=== PATIENT | male | born 1955 | race Caucasian/White ===

== ENCOUNTER 2019-05-01 13:26 | Emergency (ER) | payer BC ==
[~2019-05-01] VITALS: Ht 175.3 cm; Wt 88.0 kg
[~2019-05-01 13:26] MED LIST: NO HOME MEDS
[2019-05-01 14:11] LABS: BASOPHILS # (AUTO) 0.1 X10'3 (0-0.2); BASOPHILS % (AUTO) 0.6 % (0-1); EOSINOPHILS # (AUTO) 0.1 X10'3 (0-0.9); EOSINOPHILS % (AUTO) 0.6 % (0-6); HEMATOCRIT 46.7 % (42.0-52.0); HEMOGLOBIN 15.9 g/dl (14.0-17.9); LYMPHOCYTES # (AUTO) 1.5 X10'3 (1.1-4.8); LYMPHOCYTES % (AUTO) 15.2 % (21-51); MEAN CORPUSCULAR HEMOGLOBIN 30.5 PG (27.0-31.0); MEAN CORPUSCULAR HGB CONC 34.1 g/dL (33.0-36.5); MEAN CORPUSCULAR VOLUME 89.7 FL (78-98); MEAN PLATELET VOLUME 8.6 FL (7.4-10.4); MONOCYTES # (AUTO) 0.5 X10'3 (0-0.9); MONOCYTES % (AUTO) 5.5 % (2-12); NEUTROPHILS # (AUTO) 7.7 X10'3 (1.8-7.7); NEUTROPHILS % (AUTO) 78.1 % (42-75); PLATELET COUNT 224 X10'3 (140-440); RED BLOOD COUNT 5.21 X10'6 (4.70-6.10); RED CELL DISTRIBUTION WIDTH 14.2 % (11.5-14.5); WHITE BLOOD COUNT 9.8 X10'3 (4.5-11.0)
[2019-05-01 14:23] LABS: PARTIAL THROMBOPLASTIN TIME 24 SECONDS (22-32)
[2019-05-01 14:38] LABS: ALANINE AMINOTRANSFERASE 42 U/L (12-78); ALBUMIN 4.1 G/DL (3.4-5.0); ALBUMIN/GLOBULIN RATIO 1.1 (1.1-1.5); ALKALINE PHOSPHATASE 60 IU/L (46-116); ANION GAP 13 (8-16); ASPARTATE AMINO TRANSFERASE 34 U/L (10-37); BILIRUBIN,TOTAL 0.5 MG/DL (0.1-1.0); BLOOD UREA NITROGEN 18 MG/DL (7-18); BUN/CREATININE RATIO 15.4 (5.4-32.0); CALCIUM 9.3 MG/DL (8.5-10.1); CHLORIDE 105 MMOL/L (99-107); CREATININE 1.17 MG/DL (0.60-1.10); GLUCOSE 131 MG/DL (70-104); POTASSIUM 3.8 MMOL/L (3.5-5.1); SODIUM 143 MMOL/L (135-145); TOTAL CARBON DIOXIDE 25.4 MMOL/L (24-32); TOTAL PROTEIN 7.9 G/DL (6.4-8.2); eGFR 63 ML/MIN
[2019-05-01 15:11] VITALS: BP 181/91
== END 2019-05-01 16:09 | disposition home or self-care (01) ==
LOC: ER 13:27
DX: E87.8 Other disorders of electrolyte and fluid balance, not elsewhere classified (principal); R42 Dizziness and giddiness; Z98.890 Other specified postprocedural states; Z88.2 Allergy status to sulfonamides
CPT/HCPCS: 36415; 71045; 80053; 84484; 85025; 85610; 85730; 93005; 99284

== ENCOUNTER 2019-05-14 10:27 | Inpatient (IN) | payer BC ==
[~2019-05-14] VITALS: Ht 175.3 cm; Wt 100.0 kg
--- NOTE | 2019-05-14 11:07 | NUR ---
PATIENT STATES HE HAS BEEN HAVING NUMBNESS ON LEFT SIDE LASTING 5-10 MINUTES WITH SOME RESIDUAL NUMBNESS. INTENSITY CAME BACK APPROX 20 MINUTES LATER. STATES RESIDUAL PERSISTS NOW.
[2019-05-14] MEDS ORDERED: iohexol 350MG/ML 100ml bottle IV ONE (11:12)
[2019-05-14 11:17] LABS: BASOPHILS # (AUTO) 0.1 X10'3 (0-0.2); BASOPHILS % (AUTO) 1.1 % (0-1); EOSINOPHILS # (AUTO) 0.1 X10'3 (0-0.9); EOSINOPHILS % (AUTO) 1.1 % (0-6); HEMATOCRIT 50.1 % (42.0-52.0); LYMPHOCYTES % (AUTO) 36.6 % (21-51); MEAN CORPUSCULAR HEMOGLOBIN 30.4 PG (27.0-31.0); MEAN CORPUSCULAR HGB CONC 33.9 g/dL (33.0-36.5); MEAN CORPUSCULAR VOLUME 89.7 FL (78-98); MEAN PLATELET VOLUME 8.1 FL (7.4-10.4); MONOCYTES # (AUTO) 0.6 X10'3 (0-0.9); MONOCYTES % (AUTO) 6.7 % (2-12); NEUTROPHILS # (AUTO) 4.5 X10'3 (1.8-7.7); NEUTROPHILS % (AUTO) 54.5 % (42-75); PLATELET COUNT 234 X10'3 (140-440); RED BLOOD COUNT 5.58 X10'6 (4.70-6.10); RED CELL DISTRIBUTION WIDTH 14.5 % (11.5-14.5); WHITE BLOOD COUNT 8.3 X10'3 (4.5-11.0)
[2019-05-14 11:27] LABS: PARTIAL THROMBOPLASTIN TIME 24 SECONDS (22-32)
[2019-05-14 11:32] LABS: ALANINE AMINOTRANSFERASE 47 U/L (12-78); ANION GAP 7 (8-16); ASPARTATE AMINO TRANSFERASE 27 U/L (10-37); BILIRUBIN,TOTAL 0.6 MG/DL (0.1-1.0); BLOOD UREA NITROGEN 14 MG/DL (7-18); BUN/CREATININE RATIO 11.3 (5.4-32.0); CALCIUM 9.5 MG/DL (8.5-10.1); CHLORIDE 103 MMOL/L (99-107); CREATININE 1.24 MG/DL (0.60-1.10); GLUCOSE 112 MG/DL (70-104); POTASSIUM 4.6 MMOL/L (3.5-5.1); SODIUM 141 MMOL/L (135-145); TOTAL CARBON DIOXIDE 30.7 MMOL/L (24-32); TOTAL PROTEIN 8.1 G/DL (6.4-8.2); TROPONIN I < 0.04 NG/ML (0.0-0.05); eGFR 59 ML/MIN
[2019-05-14 11:33] LABS: ALKALINE PHOSPHATASE 60 IU/L (46-116)
[2019-05-14 12:27] LABS: CLARITY,URINE CLEAR (Clear); COLOR,URINE YELLOW (Yellow); GLUCOSE, URINE NEGATIVE (Neg); KETONES,URINE NEGATIVE (Neg); LEUKOCYTE ESTERASE ,URINE NEGATIVE (Neg); NITRITES, URINE NEGATIVE (Neg); OCCULT BLOOD,URINE NEGATIVE (Neg); PROTEIN,URINE NEGATIVE (Neg); UROBILINOGEN,URINE 0.2 E.U/dL (0.2-1.0)
[2019-05-14 12:29] LABS: UA COLLECTION TYPE CLN CATCH MIDSTREAM
--- NOTE | 2019-05-14 12:29 | NUR ---
PATIENT TALKING TO TELE NUROLOGIST AT THIS TIME. SPOUSE AT THE BEDSIDE.
[2019-05-14] MEDS ORDERED: magnesium 4gm in 100ml NS 100 ML IV PRN (13:30)
[2019-05-14] MEDS ORDERED: acetaminophen 325mg tablet PO PRN (13:30)
[2019-05-14] MEDS ORDERED: magnesium Cl slow-release 64mg tablet PO PRN (13:30)
[2019-05-14] MEDS ORDERED: ondansetron/PF 4mg/2ml inj IV PRN (13:30)
[2019-05-14] MEDS ORDERED: potassium Cl 20 mEq SR tablet PO PRN ×2 (13:30)
[2019-05-14] MEDS ORDERED: magnesium 2GM in 50ml NS 50 ML IV PRN (13:30)
[2019-05-14] MEDS ORDERED: potassium CL 10mEq/100ml bag 100 ML IV PRN ×2 (13:30)
[2019-05-14] MEDS ORDERED: AMOX-580 PO (13:37)
[2019-05-14] MEDS ORDERED: PRED10TA23 PO (13:42)
[2019-05-14 13:55] LABS: CHOL/HDL RATIO 3.1 (0.00-4.99); CHOLESTEROL 223 MG/DL (0-200); HDL CHOLESTEROL 73 MG/DL (35-60); LDL CHOLESTEROL 124 MG/DL (50-100); TRIGLYCERIDES 171 MG/DL (20-135)
--- NOTE | 2019-05-14 15:00 | NUR ---
TC REPORT TO PRICE WOODRUFF ON ORTHO NEURO UNIT.
[2019-05-14 15:27] VITALS: BP 166/79
[2019-05-14] MEDS ORDERED: FLU VACC QS2019-20 36MOS UP/PF 60 MCG/0.5 ML SYRINGE IMVAC ONE (16:45)
[2019-05-14 18:00] VITALS: BP 146/86
[2019-05-14 22:00] VITALS: BP 114/62
[2019-05-15 02:00] VITALS: BP 132/82
[2019-05-15 06:00] VITALS: BP 143/77
--- NOTE | 2019-05-15 06:35 | NUR ---
REPORT GIVEN TO PRICE DAMON.
[2019-05-15 06:45] LABS: BASOPHILS # (AUTO) 0.1 X10'3 (0-0.2); BASOPHILS % (AUTO) 0.7 % (0-1); EOSINOPHILS # (AUTO) 0.1 X10'3 (0-0.9); EOSINOPHILS % (AUTO) 1.4 % (0-6); HEMATOCRIT 48.3 % (42.0-52.0); HEMOGLOBIN 16.1 g/dl (14.0-17.9); LYMPHOCYTES # (AUTO) 2.8 X10'3 (1.1-4.8); LYMPHOCYTES % (AUTO) 36.5 % (21-51); MEAN CORPUSCULAR HGB CONC 33.3 g/dL (33.0-36.5); MEAN CORPUSCULAR VOLUME 90.1 FL (78-98); MEAN PLATELET VOLUME 8.1 FL (7.4-10.4); MONOCYTES # (AUTO) 0.5 X10'3 (0-0.9); MONOCYTES % (AUTO) 6.9 % (2-12); NEUTROPHILS # (AUTO) 4.1 X10'3 (1.8-7.7); NEUTROPHILS % (AUTO) 54.5 % (42-75); PLATELET COUNT 229 X10'3 (140-440); RED BLOOD COUNT 5.36 X10'6 (4.70-6.10); RED CELL DISTRIBUTION WIDTH 14.6 % (11.5-14.5); WHITE BLOOD COUNT 7.6 X10'3 (4.5-11.0)
[2019-05-15 06:48] LABS: ALBUMIN 3.4 G/DL (3.4-5.0); ANION GAP 7 (8-16); BLOOD UREA NITROGEN 15 MG/DL (7-18); CALCIUM 8.9 MG/DL (8.5-10.1); CHLORIDE 103 MMOL/L (99-107); CREATININE 1.25 MG/DL (0.60-1.10); GLUCOSE 113 MG/DL (70-104); POTASSIUM 4.4 MMOL/L (3.5-5.1); SODIUM 139 MMOL/L (135-145); TOTAL CARBON DIOXIDE 28.9 MMOL/L (24-32); eGFR 58 ML/MIN
[2019-05-15] MEDS ORDERED: K and/or MAG REPLACEMENT MC SCH (08:00)
[2019-05-15] MEDS ORDERED: aspirin 325mg tablet PO SCH (08:30)
[2019-05-15] MEDS ORDERED: ASPI-1 PO (11:33)
[2019-05-15] MEDS ORDERED: AMLO5TAB4 PO (14:01)
[2019-05-15] MEDS ORDERED: ATOR10TA PO (14:02)
== END 2019-05-15 14:48 | disposition home or self-care (01) | DRG 69 ==
LOC: ER 10:27 → ED HOLD 13:44 → ORTHO 4S 15:15
PROVIDERS: ADMIT Internal Medicine; ATTEND Internal Medicine
DX: G45.1 Carotid artery syndrome (hemispheric) (principal); I10 Essential (primary) hypertension; Z80.1 Family history of malignant neoplasm of trachea, bronchus and lung; Z88.2 Allergy status to sulfonamides; Z83.3 Family history of diabetes mellitus
CPT/HCPCS: 36415; 70450; 70496; 70498; 71045; 80048; 80053; 80061; 81003; 83735; 84484; 85025; 85610; 85730; 86885; 86900; 86901; 93005; 93306; 99285; G0378; Q2037; Q9967

== ENCOUNTER 2019-09-20 10:00 | Emergency (ER) | payer MEDICARE, BC ==
[~2019-09-20] VITALS: Ht 175.3 cm; Wt 87.1 kg
[~2019-09-20 10:00] MED LIST changes: +AMLO5TAB4 PO; +AMOX-580 PO; +ASPI-1 PO; +ATOR10TA PO; -NO HOME MEDS; +PRED10TA23 PO
[2019-09-20 10:54] LABS: BASOPHILS % (AUTO) 0.5 % (0-1); EOSINOPHILS % (AUTO) 0.1 % (0-6); HEMOGLOBIN 15.9 g/dl (14.0-17.9); LYMPHOCYTES # (AUTO) 1.2 X10'3 (1.1-4.8); LYMPHOCYTES % (AUTO) 20.2 % (21-51); MEAN CORPUSCULAR HGB CONC 34.5 g/dL (33.0-36.5); MEAN CORPUSCULAR VOLUME 86.9 FL (78-98); MEAN PLATELET VOLUME 8.2 FL (7.4-10.4); MONOCYTES # (AUTO) 0.6 X10'3 (0-0.9); MONOCYTES % (AUTO) 10.3 % (2-12); NEUTROPHILS # (AUTO) 4.3 X10'3 (1.8-7.7); NEUTROPHILS % (AUTO) 68.9 % (42-75); PLATELET COUNT 191 X10'3 (140-440); RED BLOOD COUNT 5.29 X10'6 (4.70-6.10); RED CELL DISTRIBUTION WIDTH 13.8 % (11.5-14.5); WHITE BLOOD COUNT 6.2 X10'3 (4.5-11.0)
[2019-09-20 11:08] LABS: ALANINE AMINOTRANSFERASE 52 U/L (12-78); ALBUMIN 4.3 G/DL (3.4-5.0); ALBUMIN/GLOBULIN RATIO 1.1 (1.1-1.5); ALKALINE PHOSPHATASE 63 IU/L (46-116); ANION GAP 13 (8-16); ASPARTATE AMINO TRANSFERASE 48 U/L (10-37); BILIRUBIN,TOTAL 0.6 MG/DL (0.1-1.0); BLOOD UREA NITROGEN 40 MG/DL (7-18); BUN/CREATININE RATIO 21.4 (5.4-32.0); CALCIUM 8.9 MG/DL (8.5-10.1); CHLORIDE 91 MMOL/L (99-107); CREATININE 1.87 MG/DL (0.60-1.10); GLUCOSE 105 MG/DL (70-104); LIPASE 229 U/L (73-393); POTASSIUM 4.6 MMOL/L (3.5-5.1); SODIUM 127 MMOL/L (135-145); TOTAL CARBON DIOXIDE 22.8 MMOL/L (24-32); TOTAL PROTEIN 8.3 G/DL (6.4-8.2); eGFR 36 ML/MIN
[2019-09-20 11:14] LABS: CLARITY,URINE SLIGHTLY CLOUDY (Clear); COLOR,URINE YELLOW (Yellow); GLUCOSE, URINE NEGATIVE (Neg); KETONES,URINE TRACE mg/dl (Neg); LEUKOCYTE ESTERASE ,URINE NEGATIVE (Neg); NITRITES, URINE NEGATIVE (Neg); OCCULT BLOOD,URINE TRACE-INTACT (Neg); PH,URINE 5.5 (4.8-8.0); PROTEIN,URINE 30 mg/dl (Neg); UA COLLECTION TYPE CLN CATCH MIDSTREAM; UROBILINOGEN,URINE 0.2 E.U/dL (0.2-1.0)
[2019-09-20 11:26] LABS: BACTERIA,URINE FEW /HPF (Neg); MUCUS STRANDS NONE SEEN /LPF (Neg); RBC,URINE NONE SEEN /HPF (0-2); SQUAMOUS EPITHELIAL CELL,UR FEW /LPF (FEW)
[2019-09-20 11:27] LABS: FINE GRANULAR CAST 0-3 /LPF (NEGATIVE)
[2019-09-20] MEDS ORDERED: acetaminophen 325mg tablet PO ONE (12:05)
[2019-09-20] MEDS ORDERED: normal saline 1000ML IV soln IVB ONE (12:05)
[2019-09-20] MEDS ORDERED: loperamide 2mg capsule PO ONE (12:05)
[2019-09-20] MEDS ORDERED: sodium chloride 1gm tablet PO ONE (12:05)
[2019-09-20 12:58] VITALS: BP 116/62
[2019-09-20] MEDS ORDERED: LOPE2CAP PO (13:43)
[2019-09-20] MEDS ORDERED: SODI100035 PO (13:43)
[2019-09-20] MEDS ORDERED: ONDA8TAB6 PO (13:49)
[2019-09-20] MEDS ORDERED: ondansetron/PF 4mg/2ml inj IV ONE (13:50)
== END 2019-09-20 14:15 | disposition home or self-care (01) ==
LOC: ER 10:01
DX: R19.7 Diarrhea, unspecified (principal); E86.0 Dehydration; J40 Bronchitis, not specified as acute or chronic; Z98.890 Other specified postprocedural states; Z88.2 Allergy status to sulfonamides; Z79.82 Long term (current) use of aspirin; Z79.899 Other long term (current) drug therapy
CPT/HCPCS: 36415; 80053; 81001; 83690; 85025; 87088; 96360; 96361; 99284; J7030

== ENCOUNTER 2020-09-25 16:52 | Emergency (ER) | payer MEDICARE, BC ==
[~2020-09-25] VITALS: Ht 175.3 cm; Wt 90.9 kg
[~2020-09-25 16:52] MED LIST changes: +LOPE2CAP PO; +ONDA8TAB6 PO; +SODI100035 PO
[2020-09-25 17:02] VITALS: BP 137/81
[2020-09-25] MEDS ORDERED: LIDOcaine 1% 30ml preserv. free vial IJ ONE (17:50)
[2020-09-25] MEDS ORDERED: TETanus/Pertussis (Acell)/Diphther VAC/PF (Tdap-Adult) 0.5ml syringe IMVAC ONE (17:50)
[2020-09-25] MEDS ORDERED: bacitracin 15gm ointment TP ONE (17:50)
[2020-09-25] MEDS ORDERED: CEPH250T PO (18:56)
== END 2020-09-25 19:43 | disposition home or self-care (01) ==
LOC: ER 16:52
DX: S61.213A Laceration without foreign body of left middle finger without damage to nail, initial encounter (principal); Z20.3 Contact with and (suspected) exposure to rabies; Z98.890 Other specified postprocedural states; Z88.2 Allergy status to sulfonamides; Z79.2 Long term (current) use of antibiotics; Z79.82 Long term (current) use of aspirin; Z79.899 Other long term (current) drug therapy; X58.XXXA Exposure to other specified factors, initial encounter; Y93.89 Activity, other specified; Y92.89 Other specified places as the place of occurrence of the external cause; Y99.8 Other external cause status
CPT/HCPCS: 12002; 73130; 90471; 90715; 99283

== ENCOUNTER 2021-10-19 18:36 | Emergency (ER) | payer MEDICARE, BC ==
[~2021-10-19] VITALS: Ht 175.3 cm; Wt 90.9 kg
[~2021-10-19 18:36] MED LIST changes: -AMLO5TAB4 PO; -AMOX-580 PO; -ASPI-1 PO; +ASPI-529; -ATOR10TA PO; +ATOR10TA70 PO; +AZIL40TA PO; -LOPE2CAP PO; -ONDA8TAB6 PO; -PRED10TA23 PO; -SODI100035 PO
--- NOTE | 2021-10-19 20:30 | NUR ---
pt states his heart rate is usually high 40's low 50's
[2021-10-19 20:59] LABS: BASOPHILS # (AUTO) 0.1 X10'3 (0-0.2); BASOPHILS % (AUTO) 0.4 % (0-1); EOSINOPHILS % (AUTO) 0.3 % (0-6); HEMATOCRIT 48.8 % (42.0-52.0); HEMOGLOBIN 16.4 g/dl (14.0-17.9); LYMPHOCYTES # (AUTO) 1.4 X10'3 (1.1-4.8); LYMPHOCYTES % (AUTO) 9.4 % (21-51); MEAN CORPUSCULAR HEMOGLOBIN 29.9 PG (27.0-31.0); MEAN CORPUSCULAR HGB CONC 33.6 g/dL (33.0-36.5); MEAN CORPUSCULAR VOLUME 88.9 FL (78-98); MEAN PLATELET VOLUME 8.5 FL (7.4-10.4); MONOCYTES # (AUTO) 0.7 X10'3 (0-0.9); MONOCYTES % (AUTO) 4.6 % (2-12); NEUTROPHILS # (AUTO) 12.8 X10'3 (1.8-7.7); NEUTROPHILS % (AUTO) 85.3 % (42-75); PLATELET COUNT 226 X10'3 (140-440); RED BLOOD COUNT 5.48 X10'6 (4.70-6.10); RED CELL DISTRIBUTION WIDTH 13.9 % (11.5-14.5)
[2021-10-19 21:00] LABS: CLARITY,URINE CLEAR (Clear); COLOR,URINE YELLOW (Yellow); GLUCOSE, URINE NEGATIVE (Neg); KETONES,URINE NEGATIVE (Neg); LEUKOCYTE ESTERASE ,URINE NEGATIVE (Neg); NITRITES, URINE NEGATIVE (Neg); OCCULT BLOOD,URINE NEGATIVE (Neg); PH,URINE 6.5 (4.8-8.0); PROTEIN,URINE NEGATIVE (Neg); UROBILINOGEN,URINE 0.2 E.U/dL (0.2-1.0)
[2021-10-19 21:06] LABS: UA COLLECTION TYPE NON-SPECIFIED
[2021-10-19 21:22] LABS: ALBUMIN 4.4 G/DL (3.4-5.0); ANION GAP 11 (8-16); BILIRUBIN,TOTAL 0.5 MG/DL (0.1-1.0); BLOOD UREA NITROGEN 30 MG/DL (7-18); BUN/CREATININE RATIO 21.4 (5.4-32.0); CALCIUM 9.7 MG/DL (8.5-10.1); CHLORIDE 101 MMOL/L (99-107); GLUCOSE 155 MG/DL (70-104); POTASSIUM 4.3 MMOL/L (3.5-5.1); SODIUM 140 MMOL/L (135-145); TOTAL PROTEIN 8.2 G/DL (6.4-8.2); eGFR 51 ML/MIN
[2021-10-19 21:23] LABS: ALANINE AMINOTRANSFERASE 42 U/L (12-78); ALBUMIN/GLOBULIN RATIO 1.2 (1.1-1.5); ALKALINE PHOSPHATASE 64 IU/L (46-116); ASPARTATE AMINO TRANSFERASE 27 U/L (10-37); LIPASE 87 U/L (73-393)
[2021-10-19] MEDS ORDERED: normal saline 1000ml 1,000 ML IV ONE (22:30)
[2021-10-20 00:46] VITALS: BP 152/78
== END 2021-10-20 00:49 | disposition home or self-care (01) ==
LOC: ER 18:37
DX: B34.9 Viral infection, unspecified (principal); H81.399 Other peripheral vertigo, unspecified ear; R11.2 Nausea with vomiting, unspecified; R19.7 Diarrhea, unspecified; R20.0 Anesthesia of skin; I10 Essential (primary) hypertension; Z86.73 Personal history of transient ischemic attack (TIA), and cerebral infarction without residual deficits; Z87.440 Personal history of urinary (tract) infections
CPT/HCPCS: 36415; 71045; 80053; 81003; 83690; 85025; 93005; 96360; 99285; J7030

== ENCOUNTER 2022-01-22 11:54 | Emergency (ER) | payer MEDICARE, BC ==
[~2022-01-22] VITALS: Ht 175.3 cm; Wt 90.9 kg
--- NOTE | 2022-01-22 12:25 | NUR ---
Responded to stroke alert in ER triage, pt concerned for stroke. He has dizziness, nausea and vomiting onset at 11am. I acccompany pt to CT scan. He transfers well to wheelchair, no unsteadiness noted.
[2022-01-22 12:37] LABS: HEMOGLOBIN 15.4 g/dl (14.0-17.9)
[2022-01-22 12:38] LABS: BASOPHILS # (AUTO) 0.1 X10'3 (0-0.2); BASOPHILS % (AUTO) 0.9 % (0-1); EOSINOPHILS # (AUTO) 0.1 X10'3 (0-0.9); EOSINOPHILS % (AUTO) 1.1 % (0-6); HEMATOCRIT 45.2 % (42.0-52.0); LYMPHOCYTES # (AUTO) 1.9 X10'3 (1.1-4.8); LYMPHOCYTES % (AUTO) 24.8 % (21-51); MEAN CORPUSCULAR HEMOGLOBIN 30.1 PG (27.0-31.0); MEAN CORPUSCULAR VOLUME 88.7 FL (78-98); MEAN PLATELET VOLUME 8.5 FL (7.4-10.4); MONOCYTES # (AUTO) 0.5 X10'3 (0-0.9); MONOCYTES % (AUTO) 6.2 % (2-12); NEUTROPHILS # (AUTO) 5.2 X10'3 (1.8-7.7); PLATELET COUNT 221 X10'3 (140-440); RED CELL DISTRIBUTION WIDTH 14.1 % (11.5-14.5); WHITE BLOOD COUNT 7.7 X10'3 (4.5-11.0)
--- NOTE | 2022-01-22 12:45 | NUR ---
back to ED bed 3, Daniel ESPINO at bedside to evaluate, call into [facility] telemed. for consult.
[2022-01-22 12:47] LABS: APTT 24 SECONDS (22-32)
[2022-01-22 12:50] LABS: ALANINE AMINOTRANSFERASE 41 U/L (12-78); ALBUMIN 4.3 G/DL (3.4-5.0); ALBUMIN/GLOBULIN RATIO 1.3 (1.1-1.5); ALKALINE PHOSPHATASE 58 IU/L (46-116); ANION GAP 13 (8-16); ASPARTATE AMINO TRANSFERASE 32 U/L (10-37); BILIRUBIN,TOTAL 0.8 MG/DL (0.1-1.0); BLOOD UREA NITROGEN 23 MG/DL (7-18); CALCIUM 9.1 MG/DL (8.5-10.1); CHLORIDE 101 MMOL/L (99-107); CREATININE 1.44 MG/DL (0.60-1.10); GLUCOSE 179 MG/DL (70-104); SODIUM 138 MMOL/L (135-145); TOTAL CARBON DIOXIDE 23.6 MMOL/L (24-32); TOTAL PROTEIN 7.7 G/DL (6.4-8.2); eGFR 49 ML/MIN
--- NOTE | 2022-01-22 12:50 | NUR ---
Dr. Pham from [facility] consults and examines pt via telemed. NIHSS 0 He recommends if cta scan from 2019 was negative will not order CTA as pt has had some chronic kidney disease, will recommend MRI, MRA without contrast. If any posterior stenosis on prior CTA move forward with repeat CTA. Daniel ESPINO notified.
[2022-01-22] MEDS ORDERED: normal saline 1000ML IV soln IVB ONE (15:05)
[2022-01-22 16:25] VITALS: BP 133/67
== END 2022-01-22 16:26 | disposition home or self-care (01) ==
LOC: ER 11:54
DX: R42 Dizziness and giddiness (principal); R11.2 Nausea with vomiting, unspecified; R20.0 Anesthesia of skin; E86.0 Dehydration; R53.1 Weakness; R00.1 Bradycardia, unspecified; I10 Essential (primary) hypertension; Z86.73 Personal history of transient ischemic attack (TIA), and cerebral infarction without residual deficits; Z87.440 Personal history of urinary (tract) infections; Z98.890 Other specified postprocedural states; Z88.2 Allergy status to sulfonamides; Z79.82 Long term (current) use of aspirin; Z79.899 Other long term (current) drug therapy
CPT/HCPCS: 36415; 70450; 71045; 80053; 82948; 84484; 85025; 85610; 85730; 93005; 99285; J7030